=== PATIENT | male | born 1980 | race Caucasian/White ===

== ENCOUNTER 2017-05-27 23:39 | Inpatient (IN) | payer SELFPAY ==
[~2017-05-27] VITALS: Ht 160 cm; Wt 63.6 kg
[2017-05-28] MEDS ORDERED: ASPIRIN 325MG TABLET PO ONE (00:30)
[2017-05-28] MEDS ORDERED: NITROGLYCERIN 0.4MG TABLET SL SL ONE (00:30)
[2017-05-28 01:11] LABS: BASOPHILS % 1.3 % (0.0-2.0); EOSINOPHILS % 0.1 % (0.0-5.0); HEMATOCRIT. 41.1 % (42.0-52.0); HEMOGLOBIN. 14.2 g/dL (14.0-18.0); LYMPHOCYTES % 22.7 % (20.0-50.0); MEAN CORPUSCULAR HEMOGLOBIN 31.3 pg (28.0-32.0); MEAN CORPUSCULAR VOLUME 90.3 fL (80.0-94.0); MEAN PLATELET VOLUME 7.9 fl (7.4-10.4); MONOCYTES % 10.5 % (2.0-8.0); NEUTROPHILS % 65.4 % (40.0-76.0); PLATELET 305 x1000/uL (130-400); RED BLOOD CELL COUNT 4.55 mill/uL (4.7-6.1); RED CELL DISTRIBUTION WIDTH 13.8 % (11.6-14.6)
[2017-05-28 01:20] LABS: PROTHROMBIN TIME 10.5 sec (9.4-11.6)
[2017-05-28 01:22] LABS: CHLORIDE 96 mEq/L (98-107)
[2017-05-28 01:29] LABS: ETHANOL BLOOD < 10 mg/dL; TROPONIN I < 0.02 ng/mL (0.00-0.04)
[2017-05-28 03:26] LABS: *AMPHETAMINES SCREEN URINE NEGATIVE (NEGATIVE); *BARBITURATES SCREEN URINE NEGATIVE (NEGATIVE); *BENZODIAZEPINES SCREEN URINE NEGATIVE (NEGATIVE); *COCAINE SCREEN URINE NEGATIVE (NEGATIVE); CANNABINOID URINE SCREEN NEGATIVE (NEGATIVE); METHADONE URINE SCREEN NEGATIVE (NEGATIVE); OPIATES URINE SCREEN NEGATIVE (NEGATIVE); PHENCYCLIDINE URINE SCREEN NEGATIVE (NEGATIVE)
[2017-05-28] MEDS ORDERED: LORAZEPAM 2MG/ML CPJ ONE (05:39)
[2017-05-28] MEDS ORDERED: LORAZEPAM 2MG/ML CPJ IV ONE ×2 (05:45)
[2017-05-28] MEDS ORDERED: LEVETIRACETAM 500MG PREMIX 100 ML IV ONE (05:45)
[2017-05-28] MEDS ORDERED: ENOXAPARIN 60MG/0.6ML SYR SUBCUT SCH (06:21)
[2017-05-28 08:48] LABS: CREATINE KINASE 253 IU/L (39-308); HDL CHOLESTEROL 80 mg/dL (40-59); LDL CHOLESTEROL 92 mg/dL (5-100)
[2017-05-28 09:13] LABS: TROPONIN I < 0.02 ng/mL (0.00-0.04)
[2017-05-28] MEDS ORDERED: SODIUM CHLORIDE 0.9% 1,000 ML IV SCH (20:39)
[2017-05-28] MEDS ORDERED: DOCUSATE SODIUM 100MG CAPSULE PO PRN (20:45)
[2017-05-28] MEDS ORDERED: GUAIFENESIN 200MG/10ML SUGAR FREE UDC PO PRN (20:45)
[2017-05-28] MEDS ORDERED: ONDANSETRON HCL 4MG/2ML VIAL IV PRN (20:45)
[2017-05-28] MEDS ORDERED: NA PHOS,M-B/NA PHOS,DI-BA ENEMA 118ML PR PRN (20:45)
[2017-05-28] MEDS ORDERED: IPRATROPIUM/ALBUTEROL 0.5-3(2.5)MG/3ML NEB INH PRN (20:45)
[2017-05-28] MEDS ORDERED: ACETAMINOPHEN 325MG TABLET PO PRN (20:45)
[2017-05-28] MEDS ORDERED: KETOROLAC 15MG/ML VIAL IV PRN (20:45)
[2017-05-28] MEDS ORDERED: CLONIDINE 0.1MG TABLET PO PRN (20:45)
[2017-05-28] MEDS ORDERED: NITROGLYCERIN 0.4MG TABLET SL SL PRN (20:45)
[2017-05-28] MEDS ORDERED: MAGNESIUM/ALUMINUM HYDROXIDE/SIMETHICONE 30ML UDC PO PRN (20:45)
[2017-05-28] MEDS ORDERED: LEVETIRACETAM 500MG TABLET PO SCH (22:45)
[2017-05-29 08:45] VITALS: BP 105/75
[2017-05-29] MEDS ORDERED: LEVETIRACETAM 500MG TABLET PO SCH ×2 (09:00→10:00)
[2017-05-29] MEDS ORDERED: FAMOTIDINE 20MG/2ML VIAL IV SCH (10:00)
[2017-05-29 12:00] VITALS: BP 99/68
[2017-05-29 15:49] VITALS: BP 101/65
[2017-05-29 16:00] VITALS: BP 101/65
== END 2017-05-29 17:30 | disposition home or self-care (01) | DRG 53 ==
LOC: ER 23:46 → CANRESERV 05-28 07:55 → ENRESERV 05-28 07:55 → 5WST 05-28 21:43 → EDBEDREQSVC 05-28 21:44 → ENRESERV 05-29 07:53
PROVIDERS: ADMIT Internal Medicine; ATTEND Internal Medicine
DX: R56.9 Unspecified convulsions (principal); E87.1 Hypo-osmolality and hyponatremia; R07.89 Other chest pain
CPT/HCPCS: 36415; 70450; 71045; 80053; 80061; 80305; 82550; 82962; 83036; 83880; 84484; 85025; 85379; 85610; 93005; 96365; 96372; 96375; 99285; G0482; J1650; J1953; J2060; J3490; J7030

== ENCOUNTER 2017-06-06 06:38 | Inpatient (IN) | payer SELFPAY ==
[~2017-06-06] VITALS: Ht 167.6 cm; Wt 65.8 kg
[2017-06-06] MEDS ORDERED: SODIUM CHLORIDE 0.9% 1,000 ML IV ONE (06:56)
[2017-06-06] MEDS ORDERED: LORAZEPAM 2MG/ML CPJ IV ONE ×2 (07:00→10:30)
[2017-06-06] MEDS ORDERED: LEVETIRACETAM 500MG PREMIX 100 ML IV ONE (07:00)
[2017-06-06] MEDS ORDERED: LORAZEPAM 2MG/ML CPJ ONE (07:05)
[2017-06-06 07:33] LABS: PROTHROMBIN TIME 10.3 sec (9.4-11.6)
[2017-06-06 07:35] LABS: BASOPHILS % 0.9 % (0.0-2.0); EOSINOPHILS % 0.1 % (0.0-5.0); HEMATOCRIT. 42.1 % (42.0-52.0); HEMOGLOBIN. 13.9 g/dL (14.0-18.0); LYMPHOCYTES % 26.5 % (20.0-50.0); MEAN CORPUSCULAR HEMOGLOBIN 30.8 pg (28.0-32.0); MEAN CORPUSCULAR VOLUME 93.4 fL (80.0-94.0); MEAN PLATELET VOLUME 8.3 fl (7.4-10.4); MONOCYTES % 8.4 % (2.0-8.0); NEUTROPHILS % 64.1 % (40.0-76.0); PLATELET 309 x1000/uL (130-400); RED BLOOD CELL COUNT 4.51 mill/uL (4.7-6.1); RED CELL DISTRIBUTION WIDTH 13.3 % (11.6-14.6)
[2017-06-06 07:37] LABS: CHLORIDE 98 mEq/L (98-107); ETHANOL BLOOD < 10 mg/dL
[2017-06-06 07:41] LABS: TROPONIN I < 0.02 ng/mL (0.00-0.04)
[2017-06-06 07:43] LABS: CREATINE KINASE 308 IU/L (39-308)
[2017-06-06 07:44] LABS: CARBAMAZEPINE < 0.5 ug/mL (4-12); PHENOBARBITAL < 2.1 ug/mL (15.0-40.0)
[2017-06-06] MEDS ORDERED: SODIUM CHLORIDE 0.9% 1000ML BAG (SEPSIS BOLUS) IV ONE (08:00)
[2017-06-06] MEDS ORDERED: DIPHENHYDRAMINE 50MG/ML VIAL IV PRN (11:00)
[2017-06-06] MEDS ORDERED: CLONIDINE 0.1MG TABLET PO PRN (11:00)
[2017-06-06] MEDS ORDERED: IPRATROPIUM/ALBUTEROL 0.5-3(2.5)MG/3ML NEB INH PRN (11:00)
[2017-06-06] MEDS ORDERED: LORAZEPAM 2MG/ML CPJ IV PRN (11:00)
[2017-06-06] MEDS ORDERED: NA PHOS,M-B/NA PHOS,DI-BA ENEMA 118ML PR PRN (11:00)
[2017-06-06] MEDS ORDERED: ACETAMINOPHEN 325MG TABLET PO PRN (11:00)
[2017-06-06] MEDS ORDERED: MAGNESIUM/ALUMINUM HYDROXIDE/SIMETHICONE 30ML UDC PO PRN (11:00)
[2017-06-06] MEDS ORDERED: ZOLPIDEM TARTRATE 5MG TABLET PO PRN (11:00)
[2017-06-06] MEDS ORDERED: DOCUSATE SODIUM 100MG CAPSULE PO PRN (11:00)
[2017-06-06] MEDS ORDERED: KETOROLAC 15MG/ML VIAL IV PRN ×2 (11:00→18:30)
[2017-06-06] MEDS ORDERED: NITROGLYCERIN 0.4MG TABLET SL SL PRN (11:00)
[2017-06-06] MEDS ORDERED: ONDANSETRON HCL 4MG/2ML VIAL IV PRN (11:00)
[2017-06-06] MEDS ORDERED: GUAIFENESIN 200MG/10ML SUGAR FREE UDC PO PRN (11:00)
[2017-06-06 16:00] VITALS: BP 143/91
[2017-06-06] MEDS ORDERED: LORAZEPAM 0.5MG TABLET PO PRN (18:30)
[2017-06-06 20:00] VITALS: BP 114/71
[2017-06-06] MEDS: FAMOTIDINE 20MG/2ML VIAL IV SCH (20:59)
[2017-06-06] MEDS: LEVETIRACETAM 500MG TABLET PO SCH (20:59)
[2017-06-06] MEDS ORDERED: ENOXAPARIN 40MG/0.4ML SYR SUBCUT SCH (21:00)
[2017-06-07] VITALS: BP 107/60
[2017-06-07 04:00] VITALS: BP 108/63
[2017-06-07 08:05] VITALS: BP 113/69
[2017-06-07] MEDS: FAMOTIDINE 20MG/2ML VIAL IV SCH (08:13)
[2017-06-07] MEDS: LEVETIRACETAM 500MG TABLET PO SCH (08:13)
[2017-06-07 11:57] VITALS: BP 105/61
== END 2017-06-07 13:15 | disposition home or self-care (01) | DRG 53 ==
LOC: EDBEDREQ 07:00 → ER 10:26 → 5WST 10:27 → ENRESERV 16:34 → 5WST 18:50
PROVIDERS: ADMIT Internal Medicine; ATTEND Internal Medicine
DX: G40.909 Epilepsy, unspecified, not intractable, without status epilepticus (principal); G93.40 Encephalopathy, unspecified; E87.2 Acidosis; E87.1 Hypo-osmolality and hyponatremia
CPT/HCPCS: 36415; 70450; 71045; 72125; 80053; 80156; 80165; 80184; 80185; 82550; 83036; 83605; 83880; 84484; 85025; 85610; 93005; 93970; 96374; 96375; 96376; 99285; G0482; J1650; J1953; J2060; J3490; J7030